=== PATIENT | female | born 1990 | race Caucasian/White ===

== ENCOUNTER 2016-09-27 14:41 | Emergency (ER) | payer MEDICAID ==
--- NOTE | 2016-09-27 15:41 | ED Physician Chart ---
Chief Complaint/HPI - Patient Information Date Seen:: 09/27/16 Time Seen:: 15:08 Chief Complaint:: ANXIETY, chronic History of Present Illness:: This 26-year-old female presents with a two-year history of anxiety and panic attacks. The triggering event was 2 years ago when she was exposed to a movie that was showing people being murdered and decapitated. 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 Since then the patient has been hearing voices that are telling her that bad things are going to happen to her and to her family. Sometimes the patient is threatened with murder by the voices. She also relates that she feels like she is possessed and that that this is a spiritual event. The patient denies any suicidal intentions and has no prior history of self cutting or suicide attempts. No prior history of psychiatric evaluation or hospitalization. The patient saw another physician 4 days ago and he prescribed Indocin for chest pain associated with her breast implants and amitriptyline for her anxiety attacks. She has been taking the medicines for 4 days and not experienced any improvement. Allergies:: Allergies Allergy/AdvReac Type Severity Reaction Status Date / Time No Known Allergies Allergy Verified 09/27/16 15:02 Vitals:: Vital Signs - 8 hr 09/27/16 15:02 Temp 98.1 F HR 83 RR 17 BP 125/83 O2 Sat % 100 Review of Systems - Review of Systems General/Constitutional: No fever, No chills, No weakness Skin: No skin lesions, No bruising Head: No headache, No light-headedness Eyes: No loss of vision, No diplopia ENT: No earache, No sore throat, No tinnitus Neck: No neck pain, No swelling, No thyromegaly, No stiffness, No mass noted Cardio Vascular: Chest pain (the pain is in the anterior portion of the upper chest in the region where she had breast implants. A mammogram was obtained 4 days ago and showed some scarring and inflammation.) Pulmonary: SOB, No cough, No sputum, No wheezing GI: No nausea Musculoskeletal: No bone or joint pain, No back pain, No muscle pain Endocrine: No polyuria, No polydipsia Psychiatric: No prior psych history, Anxiety, No suicidal ideation, No homicidal ideation, Auditory hallucination, No visual hallucination Hematopoietic: No bruising, No lymphadenopathy Allergic/Immuno: No urticaria, No angioedema Neurological: No syncope, No seizure Past Medical History - Past Medical History Past Medical History: No significant medical hx, Other (NO Thyroid problems, asthma, seizures or prior psychiatric problems.) Social History: Non Smoker (Rare alcohol), Illicit Drug Use, Single, Lives With Parents, Employed Employment:: In sales. Surgical History: other (Breast implants.) Family Medical History - Family Member Mother History Unknown: Yes (The patient has a family history of bipolar disorder on her mothers side.) Physical Exam - Physical Examination General/Constitutional: Well-developed, well-nourished, Alert, GCS 15, Non- toxic appearing, Ambulatory Other Gen/Cons comments:: Intermittently tearful Head: Atraumatic Eyes: Lids, conjuctiva normal, PERRL, EOMI Other Eyes comments:: NO NYSTAGMUS. Skin: Nl inspection, No rash, No skin lesions, No ecchymosis, Well hydrated, No lymphadenopathy ENMT: External ears, nose nl, Nasal exam nl, Lips, teeth, gums nl, Oropharynx nl , Tonsils nl Neck: Nontender, Full ROM w/o pain, No JVD, No nuchal rigidity, No mass Respiratory: Nl effort/Exclusion, Clear to Auscultation, No Wheeze/Rhonchi/Rales Cardio Vascular: RRR, No murmur, gallop, rubs, NL S1 S2 ( Good pulses in all four extremities.) Other Cardio Vascular comments:: Adequate pulses in all 4 extremities. GI: No tenderness/rebounding/guarding, No organomegaly, No hernia, Normal BS's, Nondistended, No mass/bruits, No McBurney tenderness Other GI comments:: Rectal exam differed at my discretion. : No CVA tenderness Extremities: No tenderness or effusion, Full ROM, normal strength in all extremities, No edema Neuro/Psych: Alert/oriented, DTR's symmetric, Normal sensory exam, Normal motor strength (NO pronator drift. Normal finger-nose and rapid alternating hand movements. Cranial nerves II through XI grossly intact.) Other Neuro/Psych comments:: Affect is normal and mood is frightened and anxious. Pt is intermittantly when describing her symptoms. Labs/Radiology/EKG Results - Lab Results Results: Laboratory Tests 09/27/16 09/27/1609/27/17 15:35 15:35 15:35 WBC RBC Hgb Hct MCV MCH MCHC Differential RDW Plt Count MPV Neutrophils % Lymphocytes % Monocytes % Eosinophils % Basophils % Sodium Potassium Chloride Carbon Dioxide Anion Gap BUN Creatinine Est GFR ( Amer) Est GFR (Non-Af Amer) BUN/Creatinine Ratio Glucose Calcium Total Bilirubin AST ALT Alkaline Phosphatase Total Protein Albumin Globulin Albumin/Globulin Ratio Urine Source RANDOM Urine Color YELLOW Urine Clarity CLEAR Urine pH 7.0 Ur Specific [place] 1.010 Urine Protein NEGATIVE Urine Glucose (UA) NEGATIVE Urine Ketones NEGATIVE Urine Blood NEGATIVE Urine Nitrate NEGATIVE Urine Bilirubin NEGATIVE Urine Urobilinogen 0.2 Ur Leukocyte Esterase TRACE H Urine RBC NONE SEEN Urine WBC 2-5 Ur Epithelial Cells NONE SEEN Urine Bacteria NONE SEEN Urine Test NEGATIVE Urine Opiates Screen NEGATIVE Ur Barbiturates Screen NEGATIVE Ur Phencyclidine Scrn NEGATIVE Amphetamines Screen NEGATIVE U Methamphetamines Scrn NEGATIVE U Benzodiazepines Scrn NEGATIVE U Cocaine Metab Screen NEGATIVE U Cannabinoids Screen NEGATIVE 09/27/16 09/27/16 15:45 15:45 WBC 7.9 RBC 4.53 Hgb 13.4 Hct 39.6 MCV 87.4 MCH 29.6 MCHC Differential 33.9 RDW 14.8 Plt Count 251 MPV 8.7 Neutrophils % 59.7 Lymphocytes % 31.0 Monocytes % 6.8 Eosinophils % 1.1 Basophils % 1.4 Sodium 136 Potassium 3.9 Chloride 104 Carbon Dioxide 26.1 Anion Gap 9.8 BUN 18 Creatinine 0.8 Est GFR ( Amer) > 60.0 Est GFR (Non-Af Amer) > 60.0 BUN/Creatinine Ratio 22.5 Glucose 122 H Calcium 10.0 Total Bilirubin 0.7 AST 15 ALT 14 Alkaline Phosphatase 75 Total Protein 8.0 Albumin 4.7 Globulin 3.3 Albumin/Globulin Ratio 1.4 Urine Source Urine Color Urine Clarity Urine pH Ur Specific [place] Urine Protein Urine Glucose (UA) Urine Ketones Urine Blood Urine Nitrate Urine Bilirubin Urine Urobilinogen Ur Leukocyte Esterase Urine RBC Urine WBC Ur Epithelial Cells Urine Bacteria Urine Test Urine Opiates Screen Ur Barbiturates Screen Ur Phencyclidine Scrn Amphetamines Screen U Methamphetamines Scrn U Benzodiazepines Scrn U Cocaine Metab Screen U Cannabinoids Screen LAB INTERPRETATION: CBC Normal with no leukocytosis or anemia. Electrolytes all within normal parameters. Normal renal and liver function tests. UA with no suggestion of UTI. Urine drug screen negative for all tested drugs of abuse. Assessment - Assessment General Assessment: CASE SUMMARY: This 26 year old female has a 2 year history of anxiety and panic attacks. The pt is also hearing voices that are threatening her and her family with bodily harm and even murder. Pt denies any suicidal ideation or prior history. There are no obvious medical problems and lab results were all within normal parameters except for an insignificant elevation of her serum glucose. Pt was interviewed by crisis team sales representative supervisor and not placed on hold. My concern is that patient has elements that concern me for acute psychosis. I advised the patient to continue to take her current medications and I also gave her a prescription for lorazepam to take for anxiety or panic attacks with the usual precautions regarding mixing it with alcohol, driving and activities requiring alertness. The patient was provided with the phone number and address of the contestant coordinator psychiatrist to call and follow up with tomorrow. His phone call was not returned prior the patient's discharge. MDM DDX for Anxiety and Panic Attacks: Low risk for Suicide Attempt based on pts history. NOT Thyrotoxicosis based on exam and vital signs. NOT Drug induced symptoms based on negative drug screen and patient's denial of illicit drug use. ED Septic Shock - . Is Septic Shock (SBP<90, OR Lactate>4 mmol\L) present?: No - <6hrs of presentation: Vital Signs: Vital Signs - 8 hr 09/27/16 15:02 Temp 98.1 F HR 83 RR 17 BP 125/83 O2 Sat % 100 Reassessment (Disposition) - Reassessment Reassessment Condition:: Unchanged - Diagnosis Diagnosis:: ANXIETY WITH PANIC ATTACKS. AUDITORY HALLUCINATIONS (Possible Psychosis) Patient given referal for psychiatric evaluation and advised to call tomorrow. Return to the ER for suicidal ideation or significant worsening of your symptoms. - Aftercare/Follow up Instructions Aftercare/Follow-Up Instructions:: Counseled pt regarding lab results/diagnosis & need follow up - Patient Disposition Discharge/Transfer:: Home Accepting Physician:: REFERAL FOR ED Discharge Plan - Patient Disposition Admit/Discharge/Transfer: PT DISCHARGED HOME Condition at Disposition: Stable Prescriptions: Lorazepam [Ativan] 1 mg PO Q6H PRN #0 tablet PRN Reason: Anxiety Instructions: Anxiety and Panic Attacks, [id number], Psychosis Accepting Physician: Luis Monzon [Active] - 1-3 Days
[2016-09-27 16:14] LABS: ALB/GLOB RATIO 1.4 (1.0-1.8); ALKALINE PHOSPHATASE 75 U/L (34-104); ANION GAP 9.8 (7.0-16.0); BILIRUBIN,TOTAL 0.7 mg/dL (0.3-1.0); BUN - UREA NITROGEN 18 mg/dL (7-25); BUN/CREATININE RATIO 22.5; CARBON DIOXIDE 26.1 mEq/L (21.0-31.0); CHLORIDE 104 mEq/L (98-107); CREATININE - SERUM 0.8 mg/dL (0.6-1.2); GLUCOSE 122 mg/dL (70-105); POTASSIUM SERUM 3.9 mEq/L (3.5-5.1); SGOT 15 U/L (13-39); SGPT/ALT 14 U/L (7-52); SODIUM SERUM 136 mEq/L (136-145)
[2016-09-27 16:18] LABS: % BASOPHILS 1.4 % (0.0-2.0); % EOSINOPHILS 1.1 % (0.0-5.0); % MONOCYTES 6.8 % (2.0-10.0); % NEUTROPHILS 59.7 % (40.0-80.0); HEMATOCRIT 39.6 % (35.0-45.0); HEMOGLOBIN 13.4 gm/dL (11.7-15.5); MEAN CELL VOLUME 87.4 fl (81-100); MEAN CORPUSCULAR HEMOGLOBIN 29.6 pg (27.0-31.0); MEAN CORPUSCULAR HGB CONC 33.9 pg (28.0-36.0); MEAN PLATELET VOLUME 8.7 fl; NEUTROPHILE ABSOLUTE 4.8 Th/cmm (1.8-8.0); PLATELET COUNT 251 Th/cmm (150-400); RED BLOOD COUNT 4.53 Mil/cmm (3.80-5.10); RED CELL DISTRIBUTION WIDTH 14.8 % (11.5-20.0); WHITE BLOOD COUNT 7.9 Th/cmm (4.8-10.8)
[2016-09-27 16:47] LABS: URINE COLOR YELLOW
[2016-09-27 16:48] LABS: URINE BILIRUBIN NEGATIVE (NEGATIVE); URINE BLOOD NEGATIVE (NEGATIVE); URINE GLUCOSE (UA) NEGATIVE (NEGATIVE); URINE KETONE NEGATIVE (NEGATIVE); URINE PROTEIN NEGATIVE (NEGATIVE); URINE UROBILINOGEN 0.2 E.U./dL (0.2 - 1.0)
[2016-09-27 16:50] LABS: URINE BACTERIA NONE SEEN /hpf (NONE SEEN); URINE EPITHELIAL CELLS NONE SEEN /lpf (FEW); URINE RBC NONE SEEN /hpf (0-5)
[2016-09-27 17:19] LABS: AMPHETAMINE URINE NEGATIVE (NEGATIVE); BARBITURATES URINE NEGATIVE (NEGATIVE)
== END 2016-09-27 18:00 | disposition home or self-care (01) ==
LOC: ER 14:41
DX: F41.0 Panic disorder [episodic paroxysmal anxiety] (principal); R44.0 Auditory hallucinations
CPT/HCPCS: 36415-UA; 80053-TC; 81001-TC; 81025-TC; 85025-TC; Z7502